=== PATIENT | male | born 1960 | race Caucasian/White ===

== ENCOUNTER → 2019-07-30 | Day surgery (SDC) | payer BC | LOC: MSO 07:21 | DX: Z12.11 Encounter for screening for malignant neoplasm of colon (principal); Z88.0 Allergy status to penicillin; Z88.2 Allergy status to sulfonamides; J44.9 Chronic obstructive pulmonary disease, unspecified; F17.210 Nicotine dependence, cigarettes, uncomplicated | CPT/HCPCS: 00812; J2704; J3010; J7120 ==